=== PATIENT | female | born 1960 | race Two or more races ===

== ENCOUNTER 2018-08-15 07:27 | Observation (INO) | payer OTHER ==
[2018-08-15 07:44] VITALS: BMI 22.2
--- NOTE | 2018-08-15 07:46 | PDOC ---
History of Present Illness <Natasha Coronel - Last Filed: 08/15/18 09:56> - General History Source: Patient Exam Limitations: No Limitations - History of Present Illness Initial Comments: 08/15/18 08:29 58-year-old female with no significant previous medical history presents to the ER with 12-14 hours of left sided paresthesias. Patient endorses that paresthesias involve her face, scalp, left upper and lower extremities. The paresthesias have increased in severity since the onset. Patient reports sensation of movement within her scalp and complains of mild left-sided pressure. Patient also reports left sided tinnitus. Patient denies changes in visual acuity but does report intermittent dizziness which she describes as a temporary loss of balance. Patient denies fevers/nausea/vomiting. There is no previous history of similar complaints. REVIEW OF SYSTEMS CONSTITUTIONAL: No fever, no chills, no fatigue EYES: No visual changes ENT: No ear pain, no sore throat CARDIOVASCULAR: No chest pain, no palpitations RESPIRATORY: No cough, no SOB GI: No abdominal pain, no nausea, no vomiting, no constipation, no diarrhea GENITOURINARY: No dysuria, no frequency, no hematuria MUSKULOSKELETAL: No backpain, no joint pain, no myalgias SKIN: No rash NEURO: + left sided headache EXAMINATION CONSTITUTIONAL: Well-appearing; well-nourished; in no apparent distress HEAD: Normocephalic; atraumatic EYES: PERRL; EOM intact ENMT: External appears normal; normal oropharynx NECK: Supple; non-tender; no cervical lymphadenopathy CARD: Normal S1, S2; no murmurs, rubs, or gallops RESP: Normal chest excursion with respiration; breath sounds clear and equal bilaterally; no wheezes, rhonchi, or rales ABD: Soft, non-distended; non-tender; no palpable organomegaly, no palpable hernias EXT: Normal ROM in all four extremities; non-tender to palpation; distal pulses intact SKIN: Warm, dry, no rash NEURO: Cranial nerves II through XII grossly intact; motor is 5 of 54; there is no pronation drift; gait is stable; there is decreased fine touch to left V1/ V2. <Gildardo Peñaloza - Last Filed: 08/15/18 11:37> - General Chief Complaint: CVA/TIA Stated Complaint: L SIDED NUMBNESS Time Seen by Provider: 08/15/18 07:46 Past History <Natasha Coronel - Last Filed: 08/15/18 09:56> - Past Medical History COPD: No Other medical history: denies - Surgical History Appendectomy: Yes - Immunization History Immunization Up to Date: Yes - Suicide/Smoking/Psychosocial Hx Smoking History: Never smoked Hx Alcohol Use: No Drug/Substance Use Hx: No <Gildardo Peñaloza - Last Filed: 08/15/18 11:37> - Past Medical History Allergies/Adverse Reactions: Allergies Allergy/AdvReac Type Severity Reaction Status Date / Time No Known Allergies Allergy Verified 08/15/18 07:33 Home Medications: Ambulatory Orders NK [No Known Home Medication] 08/15/18 *Physical Exam - Vital Signs Last Vital Signs Temp Pulse Resp BP Pulse Ox 98.4 F 106 H 18 163/55 L 100 08/15/18 07:33 08/15/18 07:33 08/15/18 07:33 08/15/18 07:33 08/15/18 07:33 <Natasha Coronel - Last Filed: 08/15/18 09:56> - Vital Signs Last Vital Signs Temp Pulse Resp BP Pulse Ox 98.4 F 106 H 18 163/55 L 100 08/15/18 07:33 08/15/18 07:33 08/15/18 07:33 08/15/18 07:33 08/15/18 07:33 <Gildardo Peñaloza - Last Filed: 08/15/18 11:37> Moderate Sedation - Procedure Monitoring Vital Signs: Procedure Monitoring Vital Signs Temperature 98.4 F 08/15/18 07:33 Pulse Rate 106 H 08/15/18 07:33 Respiratory Rate 18 08/15/18 07:33 Blood Pressure 163/55 L 08/15/18 07:33 O2 Sat by Pulse Oximetry (%) 100 08/15/18 07:33 <Natasha Coronel - Last Filed: 08/15/18 09:56> - Procedure Monitoring Vital Signs: Procedure Monitoring Vital Signs Temperature 98.4 F 08/15/18 07:33 Pulse Rate 106 H 08/15/18 07:33 Respiratory Rate 18 08/15/18 07:33 Blood Pressure 163/55 L 08/15/18 07:33 O2 Sat by Pulse Oximetry (%) 100 08/15/18 07:33 <Gildardo Peñaloza - Last Filed: 08/15/18 11:37> Critical Care Time/MDM Note - Medical Decision Making Note: 08/15/18 09:51 Dr. Lares was called at the office and the patient's case was discussed 08/15/18 09:56 Dr. Barreto was paged at the office at this time requesting a call back for doctor to doctor consult, awaiting call back at this time. <Natasha Coronel - Last Filed: 08/15/18 09:56> - Medical Decision Making Note: 08/15/18 11:17 58-year-old female with no significant past medical history presents with left- sided facial, arm and leg paresthesias and intermittent tinnitus. Differential diagnoses includes TIA versus CVA versus demyelinating disease. MS is less likely. Case discussed with Dr. Zora Bates of neurology. He recommends aspirin and MRI of brain to rule out CVA. Will place on stroke/obs further evaluation. <Gildardo Peñaloza - Last Filed: 08/15/18 11:37> *DC/Admit/Observation/Transfer - Attestations Scribe Attestion: 08/15/18 09:52 Documentation prepared by Natasha Coronel, acting as medical lab assistant for Gildardo Peñaloza MD <Natasha Coronel - Last Filed: 08/15/18 09:56> - Discharge Dispostion Decision to Admit order: Yes <Gildardo Peñaloza - Last Filed: 08/15/18 11:37> Diagnosis at time of Disposition: TIA (transient ischemic attack) - Discharge Dispostion Condition at time of disposition: Fair - Referrals Referrals: Jonah Lares MD [Primary Care Provider] - - Patient Instructions - Post Discharge Activity
[2018-08-15] MEDS ORDERED: SODIUM CHLORIDE 1,000 ML IV SCH ×2 (08:00→11:45)
[2018-08-15 08:41] LABS: BASO % 0.5 % (0-2.0); EOS % 0.8 % (0-4.5); HEMATOCRIT 39.2 % (32.4-45.2); HEMOGLOBIN 13.1 GM/dL (10.7-15.3); LYMPH % 27.7 % (8-40); MCH 29.1 pg (25.7-33.7); MCHC 33.4 g/dl (32.0-36.0); MEAN CELL VOLUME 87.2 fl (80-96); MEAN PLT VOLUME 9.8 fl (7.5-11.1); MONO % 6.2 % (3.8-10.2); NEUT % 64.8 % (42.8-82.8); PLATELET COUNT 248 K/MM3 (134-434); RBC 4.49 M/mm3 (3.60-5.2); RDW 12.9 % (11.6-15.6); WHITE BLOOD COUNT 5.5 K/mm3 (4.0-10.0)
[2018-08-15 09:02] LABS: INR 1.03 (0.83-1.09); PROTHROMBIN TIME (PATIENT) 12.2 SEC (9.7-13.0)
[2018-08-15 09:19] LABS: URINE APPEARANCE SLCLOUDY; URINE BILIRUBIN NEGATIVE (<2.0 mg/dL); URINE COLOR YELLOW; URINE GLUCOSE (UA) NEGATIVE (NEGATIVE); URINE KETONE NEGATIVE (NEGATIVE); URINE LEUK ESTERASE NEGATIVE (NEGATIVE); URINE NITRITE NEGATIVE (NEGATIVE); URINE PROTEIN NEGATIVE (NEGATIVE); URINE UROBILINOGEN NEGATIVE mg/dL (0.2-1.0)
[2018-08-15 09:22] LABS: EPI CELLS RARE /HPF (FEW); URINE MUCUS RARE
[2018-08-15 09:25] LABS: ALBUMIN 4.1 g/dl (3.4-5.0); ALK PHOS 90 U/L (45-117); ANION GAP 5 MMOL/L (8-16); BILIRUBIN,TOTAL 0.2 mg/dL (0.2-1); BLOOD UREA NITROGEN 17 mg/dL (7-18); CALCIUM 9.6 mg/dL (8.5-10.1); CHLORIDE 105 mmol/L (98-107); CHOLESTEROL 215 mg/dL (50-200); CO2 30 mmol/L (21-32); CREATININE 0.7 mg/dL (0.55-1.3); GLUCOSE,RANDOM 164 mg/dL (74-106); HDL CHOLESTEROL 67 mg/dL (40-60); POTASSIUM 4.1 mmol/L (3.5-5.1); SGOT/AST 26 U/L (15-37); SGPT/ALT 25 U/L (13-61); SODIUM 140 mmol/L (136-145); TOT PROT 7.7 g/dl (6.4-8.2); TRIGLYCERIDES 79 mg/dL (0-150)
--- NOTE | 2018-08-15 11:09 | EKG ---
Test Reason : Blood Pressure : / mmHG Vent. Rate : 093 BPM Atrial Rate : 093 BPM P-R Int : 150 ms QRS Dur : 074 ms QT Int : 352 ms P-R-T Axes : 067 -25 048 degrees QTc Int : 437 ms NORMAL SINUS RHYTHM POSSIBLE LEFT ATRIAL ENLARGEMENT NONSPECIFIC ST ABNORMALITY ABNORMAL ECG WHEN COMPARED WITH ECG OF 01-APR-2014 08:42, NO SIGNIFICANT CHANGE WAS FOUND Confirmed by PORTILLO URRUTIA, JESSICA ([id number]) on 08/15/2018 11:08:56 AM Referred By: Confirmed By:JESSICA NATH MD
--- NOTE | 2018-08-15 13:00 | HP ---
CHIEF COMPLAINT: Left sided tingling/numbness PCP: Dr. Brand HISTORY OF PRESENT ILLNESS: 58 yof with no significant PMHx, [employer]orationism, was in her [facility]OH till yesterday noon when had sudden onset of left sided head 'pressure' lasting all day and today. This AM woke with numbness/tingling sensation left side of face, left forearm dorsal area and left posterior calf region prompting her to come to the ED. Denies any slurring of speech, weakness, vision disturbance, LOC, chest pain, dyspnea, palpitations, nausea, vomiting or other concerns. 12 point ROS done, neg except above Currently her symptoms are unchanged since admission. Cleared bedside swallow eval with ED RN. ER course was notable for: (1) CT head neg for acute process (2) Neurology consult Recent Travel: denies PAST MEDICAL HISTORY: denies PAST SURGICAL HISTORY: denies Social History: Smoking: never Alcohol: occasional glass of wine Drugs: denies Works with [employer], stressful job independent in ADLs, lives with family Family History: DM in mother, grand mother with stroke in early 60s Allergies No Known Allergies Allergy (Verified 08/15/18 07:33) HOME MEDICATIONS: Home Medications Medication Instructions Recorded NK [No Known Home Medication] 08/15/18 REVIEW OF SYSTEMS CONSTITUTIONAL: Absent: fever, chills, diaphoresis, generalized weakness, malaise, loss of appetite, weight change HEENT: Absent: rhinorrhea, nasal congestion, throat pain, throat swelling, difficulty swallowing, mouth swelling, ear pain, eye pain, visual changes CARDIOVASCULAR: Absent: chest pain, syncope, palpitations, irregular heart rate, lightheadedness , peripheral edema RESPIRATORY: Absent: cough, shortness of breath, dyspnea with exertion, orthopnea, wheezing, stridor, hemoptysis GASTROINTESTINAL: Absent: abdominal pain, abdominal distension, nausea, vomiting, diarrhea, constipation, melena, hematochezia GENITOURINARY: Absent: dysuria, frequency, urgency, hesitancy, hematuria, flank pain, genital pain MUSCULOSKELETAL: Absent: myalgia, arthralgia, joint swelling, back pain, neck pain SKIN: Absent: rash, itching, pallor HEMATOLOGIC/IMMUNOLOGIC: Absent: easy bleeding, easy bruising, lymphadenopathy, frequent infections ENDOCRINE: Absent: unexplained weight gain, unexplained weight loss, heat intolerance, cold intolerance NEUROLOGIC: present: left sided head pressures, paresthesias left sided per HPI Absent: focal weakness dizziness, unsteady gait, seizure, mental status changes , bladder or bowel incontinence PSYCHIATRIC: Absent: anxiety, depression, suicidal or homicidal ideation, hallucinations. PHYSICAL EXAMINATION Vital Signs - 24 hr 08/15/18 07:33 Temperature 98.4 F Pulse Rate 106 H Respiratory 18 Rate Blood Pressure 163/55 L O2 Sat by Pulse 100 Oximetry (%) GENERAL: Awake, alert, and fully oriented, in no acute distress. HEAD: Normal with no signs of trauma. EYES: Pupils equal, round and reactive to light, extraocular movements intact, sclera anicteric, conjunctiva clear. No lid lag. EARS, NOSE, THROAT: Ears normal, nares patent, oropharynx clear without exudates. Moist mucous membranes. NECK: Normal range of motion, supple without lymphadenopathy, JVD, or masses. No carotid bruit appreciated LUNGS: Breath sounds equal, clear to auscultation bilaterally. No wheezes, and no crackles. No accessory muscle use. HEART: Regular rate and rhythm, normal S1 and S2 ABDOMEN: Soft, nontender, not distended, normoactive bowel sounds, no guarding, no rebound, no masses. No hepatomegaly or splenomegaly appreciated. MUSCULOSKELETAL: Normal range of motion at all joints. No bony deformities or tenderness. No CVA tenderness. UPPER EXTREMITIES: 2+ pulses, warm, well-perfused. No cyanosis. No clubbing. No peripheral edema. LOWER EXTREMITIES: 2+ pulses, warm, well-perfused. No calf tenderness. No peripheral edema. NEUROLOGICAL: AAOx3, facial symmetry, tongue midline, power 5/5, no pronator drift, toes downgoing, DTR bilaterally symmetric, reports tingling on palpation of left face/left dorsal forearm and posterior calf region with no reported numbness or decreased sensation, Cranial nerves II-XII intact. Normal speech. Normal gait. PSYCHIATRIC: Cooperative. Good eye contact. Appropriate mood and affect. SKIN: Warm, dry, normal turgor, no rashes or lesions noted, normal capillary refill. Laboratory Results - last 24 hr 08/15/18 08/15/18 08/15/18 08:10 08:10 08:10 WBC 5.5 RBC 4.49 Hgb 13.1 Hct 39.2 MCV 87.2 MCH 29.1 MCHC 33.4 RDW 12.9 Plt Count 248 MPV 9.8 Absolute Neuts (auto) 3.6 Neutrophils % 64.8 Lymphocytes % 27.7 Monocytes % 6.2 Eosinophils % 0.8 Basophils % 0.5 Nucleated RBC % 0 PT with INR 12.20 INR 1.03 Sodium Potassium Chloride Carbon Dioxide Anion Gap BUN Creatinine Creat Clearance w eGFR Random Glucose Calcium Total Bilirubin AST ALT Alkaline Phosphatase Creatine Kinase Troponin I Total Protein Albumin Triglycerides Cholesterol Total LDL Cholesterol HDL Cholesterol Vitamin B12 TSH Urine Color Yellow Urine Appearance Slcloudy Urine pH 6.0 Ur Specific [place] 1.013 Urine Protein Negative Urine Glucose (UA) Negative Urine Ketones Negative Urine Blood 1+ H Urine Nitrite Negative Urine Bilirubin Negative Urine Urobilinogen Negative Ur Leukocyte Esterase Negative Urine WBC (Auto) 2 Urine RBC (Auto) 10 Ur Epithelial Cells Rare Urine Mucus Rare 08/15/18 08:10 WBC RBC Hgb Hct MCV MCH MCHC RDW Plt Count MPV Absolute Neuts (auto) Neutrophils % Lymphocytes % Monocytes % Eosinophils % Basophils % Nucleated RBC % PT with INR INR Sodium 140 Potassium 4.1 Chloride 105 Carbon Dioxide 30 Anion Gap 5 L BUN 17 Creatinine 0.7 Creat Clearance w eGFR > 60 Random Glucose 164 H Calcium 9.6 Total Bilirubin 0.2 AST 26 ALT 25 Alkaline Phosphatase 90 Creatine Kinase 133 Troponin I < 0.02 Total Protein 7.7 Albumin 4.1 Triglycerides 79 Cholesterol 215 H Total LDL Cholesterol 115 H HDL Cholesterol 67 H Vitamin B12 997 H TSH 5.12 H Urine Color Urine Appearance Urine pH Ur Specific [place] Urine Protein Urine Glucose (UA) Urine Ketones Urine Blood Urine Nitrite Urine Bilirubin Urine Urobilinogen Ur Leukocyte Esterase Urine WBC (Auto) Urine RBC (Auto) Ur Epithelial Cells Urine Mucus CT brain results reviewed EKG NSR, no acute ST-T changes ASSESSMENT/PLAN: 58 yof with no significant PMHx here with left side paresthesias. -left sided paresthesias, r/o TIA/CVA -Dyslipidemia -Elevated TSH Plan: Admit to stroke telemetry Neuro checks, MRI brain, Carotid duplex, 2D echo. Neurology consulted from ED, follow up recs. Permissive HTN x 24 hours. High dose statin for now Follow up full thyroid panel. Cleared bedside swallow eval, no speech or swallow concerns. PO as tolerated for now PT eval [id number] SCDs in bed Dispo d/c in 24 hours if no new clinical concerns pending workup as above Plan discussed with patient and daughter at bedside in detail, all questions answered total admit time 55 min. Visit type - Emergency Visit Emergency Visit: Yes ED Registration Date: 08/15/18 Care time: The patient presented to the Emergency Department on the above date and was hospitalized for further evaluation of their emergent condition. - New Patient This patient is new to me today: Yes Date on this admission: 08/15/18 - Critical Care Critical Care patient: No
[2018-08-15] MEDS ORDERED: ATORVASTATIN CA 80 MG TABLET (FP) PO SCH (22:00)
[2018-08-16 05:36] VITALS: PULSE 84
--- NOTE | 2018-08-16 09:17 | CONSULT ---
Consult - text type - Consultation Consultation Note: Neurology CHIEF COMPLAINT: Left sided tingling/numbness PCP: Dr. Brand HISTORY OF PRESENT ILLNESS: 58 yof with no significant PMHx, Orthodoxy, was in her [facility] untill day prior to admission when she had sudden onset of left sided head 'pressure' lasting all day and into the day of admission. Day of admission, she woke up with numbness/tingling sensation left side of face, left forearm dorsal area and left posterior calf region prompting her to come to the ED. She denied any slurring of speech, weakness, vision disturbance, LOC, chest pain, dyspnea, palpitations, nausea, vomiting or other concerns. Cleared bedside swallow eval with ED RN. CT head reviewd and without acute changes. Contacted by ER and agreed with obs/admission for CVA workup. MRI brain ordered and completed, reviewed images. Awaiting official report. Carotid doppler completed and reviewed, no hemodynamically signficant stenosis. Echo being completed at bedside this AM. Patient reports being at baseline without complaints or deficits. Recent Travel: denies PAST MEDICAL HISTORY: denies PAST SURGICAL HISTORY: denies Social History: Smoking: never Alcohol: occasional glass of wine Drugs: denies Works with [employer], stressful job independent in ADLs, lives with family Family History: DM in mother, grand mother with stroke in early 60s Allergies No Known Allergies Allergy (Verified 08/15/18 07:33) HOME MEDICATIONS: Home Medications Medication Instructions Recorded NK [No Known Home Medication] 08/15/18 REVIEW OF SYSTEMS CONSTITUTIONAL: Absent: fever, chills, diaphoresis, generalized weakness, malaise, loss of appetite, weight change HEENT: Absent: rhinorrhea, nasal congestion, throat pain, throat swelling, difficulty swallowing, mouth swelling, ear pain, eye pain, visual changes CARDIOVASCULAR: Absent: chest pain, syncope, palpitations, irregular heart rate, lightheadedness , peripheral edema RESPIRATORY: Absent: cough, shortness of breath, dyspnea with exertion, orthopnea, wheezing, stridor, hemoptysis GASTROINTESTINAL: Absent: abdominal pain, abdominal distension, nausea, vomiting, diarrhea, constipation, melena, hematochezia GENITOURINARY: Absent: dysuria, frequency, urgency, hesitancy, hematuria, flank pain, genital pain MUSCULOSKELETAL: Absent: myalgia, arthralgia, joint swelling, back pain, neck pain SKIN: Absent: rash, itching, pallor HEMATOLOGIC/IMMUNOLOGIC: Absent: easy bleeding, easy bruising, lymphadenopathy, frequent infections ENDOCRINE: Absent: unexplained weight gain, unexplained weight loss, heat intolerance, cold intolerance NEUROLOGIC: present: left sided head pressures, paresthesias left sided per HPI Absent: focal weakness dizziness, unsteady gait, seizure, mental status changes , bladder or bowel incontinence PSYCHIATRIC: Absent: anxiety, depression, suicidal or homicidal ideation, hallucinations. PHYSICAL EXAMINATION Vital Signs Period Temp Pulse Resp BP Sys/Mehta Pulse Ox Last 24 Hr 97.3 F-99.3 F 81-84 18-20 124-154/66-74 97 GENERAL: Awake, alert, and fully oriented, in no acute distress. HEAD: Normal with no signs of trauma. EYES: Pupils equal, round and reactive to light, extraocular movements intact, sclera anicteric, conjunctiva clear. No lid lag. EARS, NOSE, THROAT: Ears normal, nares patent, oropharynx clear without exudates. Moist mucous membranes. NECK: Normal range of motion, supple without lymphadenopathy, JVD, or masses. No carotid bruit appreciated LUNGS: Breath sounds equal, clear to auscultation bilaterally. No wheezes, and no crackles. No accessory muscle use. HEART: Regular rate and rhythm, normal S1 and S2 ABDOMEN: Soft, nontender, not distended, normoactive bowel sounds, no guarding, no rebound, no masses. No hepatomegaly or splenomegaly appreciated. MUSCULOSKELETAL: Normal range of motion at all joints. No bony deformities or tenderness. No CVA tenderness. UPPER EXTREMITIES: 2+ pulses, warm, well-perfused. No cyanosis. No clubbing. No peripheral edema. LOWER EXTREMITIES: 2+ pulses, warm, well-perfused. No calf tenderness. No peripheral edema. NEUROLOGICAL: AAOx3, facial symmetry, tongue midline, power 5/5, no pronator drift, toes downgoing, DTR bilaterally symmetric, reports tingling on palpation of left face/left dorsal forearm and posterior calf region with no reported numbness or decreased sensation, Cranial nerves II-XII intact. Normal speech. Normal gait. PSYCHIATRIC: Cooperative. Good eye contact. Appropriate mood and affect. SKIN: Warm, dry, normal turgor, no rashes or lesions noted, normal capillary refill. Laboratory Results - last 24 hr 08/15/18 08/15/18 08/15/18 08:10 08:10 08:10 WBC 5.5 RBC 4.49 Hgb 13.1 Hct 39.2 MCV 87.2 MCH 29.1 MCHC 33.4 RDW 12.9 Plt Count 248 MPV 9.8 Absolute Neuts (auto) 3.6 Neutrophils % 64.8 Lymphocytes % 27.7 Monocytes % 6.2 Eosinophils % 0.8 Basophils % 0.5 Nucleated RBC % 0 PT with INR 12.20 INR 1.03 Sodium Potassium Chloride Carbon Dioxide Anion Gap BUN Creatinine Creat Clearance w eGFR Random Glucose Calcium Total Bilirubin AST ALT Alkaline Phosphatase Creatine Kinase Troponin I Total Protein Albumin Triglycerides Cholesterol Total LDL Cholesterol HDL Cholesterol Vitamin B12 TSH Urine Color Yellow Urine Appearance Slcloudy Urine pH 6.0 Ur Specific [place] 1.013 Urine Protein Negative Urine Glucose (UA) Negative Urine Ketones Negative Urine Blood 1+ H Urine Nitrite Negative Urine Bilirubin Negative Urine Urobilinogen Negative Ur Leukocyte Esterase Negative Urine WBC (Auto) 2 Urine RBC (Auto) 10 Ur Epithelial Cells Rare Urine Mucus Rare 08/15/18 08:10 WBC RBC Hgb Hct MCV MCH MCHC RDW Plt Count MPV Absolute Neuts (auto) Neutrophils % Lymphocytes % Monocytes % Eosinophils % Basophils % Nucleated RBC % PT with INR INR Sodium 140 Potassium 4.1 Chloride 105 Carbon Dioxide 30 Anion Gap 5 L BUN 17 Creatinine 0.7 Creat Clearance w eGFR > 60 Random Glucose 164 H Calcium 9.6 Total Bilirubin 0.2 AST 26 ALT 25 Alkaline Phosphatase 90 Creatine Kinase 133 Troponin I < 0.02 Total Protein 7.7 Albumin 4.1 Triglycerides 79 Cholesterol 215 H Total LDL Cholesterol 115 H HDL Cholesterol 67 H Vitamin B12 997 H TSH 5.12 H Urine Color Urine Appearance Urine pH Ur Specific [place] Urine Protein Urine Glucose (UA) Urine Ketones Urine Blood Urine Nitrite Urine Bilirubin Urine Urobilinogen Ur Leukocyte Esterase Urine WBC (Auto) Urine RBC (Auto) Ur Epithelial Cells Urine Mucus CT brain results reviewed EKG NSR, no acute ST-T changes ASSESSMENT/PLAN: 58 yof with no significant PMHx, Orthodoxy, was in her [facility] untill day prior to admission when she had sudden onset of left sided head 'pressure' lasting all day and into the day of admission. Day of admission, she woke up with numbness/tingling sensation left side of face, left forearm dorsal area and left posterior calf region prompting her to come to the ED. She denied any slurring of speech, weakness, vision disturbance, LOC, chest pain, dyspnea, palpitations, nausea, vomiting or other concerns. Cleared bedside swallow eval with ED RN. CT head reviewd and without acute changes. Contacted by ER and agreed with obs/admission for CVA workup. MRI brain ordered and completed, reviewed images. Awaiting official report. Carotid doppler completed and reviewed, no hemodynamically signficant stenosis. Echo being completed at bedside this AM. Patient reports being at baseline without complaints or deficits. Continue tele monitoring for now. Follow up official reports on MRI and Echo. Neurologically stable, if negative MRI, would not require ASA at this point given lack of risk factors (no HTN, no HLD history). SCDs ordered for DVT prevention. Neurologically at baseline, if negative work up, advised patient for outpatient followup.
[2018-08-16] MEDS ORDERED: ASPIRIN COATED 81 MG TABLET.EC PO SCH (10:00)
[2018-08-16 10:38] VITALS: BP 119/66; TEMP 98.2
--- NOTE | 2018-08-16 11:35 | ECHO ---
Name: KHURRAM BETH Exam:Adult Echocardiogram Study Date: 08/16/2018 08:33 AM Age: 58 yrs Reason For Study: tia vs cva Height: 59 in Weight: 110 lb BSA: 1.4 m2 MMode/2D Measurements & Calculations IVSd: 0.76 cm Ao root diam: 2.3 cm LVIDd: 3.1 cm LA dimension: 2.2 cm LVIDs: 2.0 cm LVPWd: 0.77 cm LVPWs: 1.5 cm EDV(Teich): 38.0 ml ESV(Teich): 13.5 ml LVOT diam: 1.9 cm RV S Pablo: 14.4 cm/sec Doppler Measurements & Calculations MV E max pablo: 79.1 cm/sec Ao V2 max: 127.4 cm/sec MV A max pablo: 75.7 cm/sec Ao max P.5 mmHg MV E/A: 1.0 Ao V2 mean: 78.6 cm/sec MV dec time: 0.18 sec Ao mean P.0 mmHg Ao V2 VTI: 22.8 cm HERON(I,D): 2.7 cm2 HERON(V,D): 2.5 cm2 LV V1 max P.1 mmHg SV(LVOT): 62.6 ml LV V1 mean P.4 mmHg LV V1 max: 112.5 cm/sec LV V1 mean: 71.8 cm/sec LV V1 VTI: 22.2 cm TR max pablo: 211.7 cm/sec PA V2 max: 113.9 cm/sec TR max P.9 mmHg PA max P.2 mmHg Med Peak E' Pablo: 7.7 cm/sec Med E/e': 10.2 Lat Peak E' Pablo: 9.6 cm/sec Lat E/e': 8.3 Procedure A complete two-dimensional transthoracic echocardiogram was performed (2D, M-mode, Doppler and color flow Doppler). Left Ventricle The left ventricular size, thickness and function are normal. The left ventricular ejection fraction is normal. Ejection Fraction = 60-65%. The left ventricular wall motion is normal. Right Ventricle The right ventricle is normal in size and function. Atria Normal left and right atrial size and function. Mitral Valve There is trace mitral regurgitation. Tricuspid Valve No tricuspid regurgitation. There was insufficient TR detected to calculate RV systolic pressure. Aortic Valve No hemodynamically significant valvular aortic stenosis. No aortic regurgitation is present. Pulmonic Valve There is no pulmonic valvular regurgitation. Great Vessels The aortic root is normal size. Pericardium/Pleura There is no pericardial effusion. Interpretation Summary The left ventricular size, thickness and function are normal The right ventricle is normal in size and function. There is trace mitral regurgitation. MD Saul Nova 08/16/2018 11:34 AM
--- NOTE | 2018-08-16 13:56 | DS ---
Physical Exam: SUBJECTIVE: Patient seen and examined, no further tingling, numbness or new concerns. Feels well. OBJECTIVE: Vital Signs Period Temp Pulse Resp BP Sys/Mehta Pulse Ox Last 24 Hr 97.3 F-99.3 F 81-84 18-22 119-154/66-74 97-98 PHYSICAL EXAM GENERAL: The patient is awake, alert, and fully oriented, in no acute distress. HEAD: Normal with no signs of trauma. EYES: PERRL, extraocular movements intact, sclera anicteric, conjunctiva clear. ENT: Ears normal, nares patent, oropharynx clear without exudates, moist mucous membranes. NECK: Trachea midline, full range of motion, supple. LUNGS: Breath sounds equal, clear to auscultation bilaterally, no wheezes, no crackles, no accessory muscle use. HEART: Regular rate and rhythm, S1, S2 without murmur, rub or gallop. ABDOMEN: Soft, nontender, nondistended, normoactive bowel sounds, no guarding, no rebound, no hepatosplenomegaly, no masses. EXTREMITIES: 2+ pulses, warm, well-perfused, no edema. NEUROLOGICAL: AAOx3, power 5/5, sensation intact and symmetric bilaterally, no tingling or numbness noted, Cranial nerves II through XII grossly intact. Normal speech, gait normal, DTR bilaterally symmetric, toes down going PSYCH: Normal mood, normal affect. SKIN: Warm, dry, normal turgor, no rashes or lesions noted. LABS Laboratory Results - last 24 hr 08/15/18 12:[address]3 [address] brain - CT scan of the brain without intravenous contrast. There is mild volume loss which is nonspecific. The ventricles and basal cisterns appear unremarkable. No mass lesion, gross acute infarct or intracranial hemorrhage are identified. Visualized paranasal sinuses and mastoid air cells are well- aerated. The calvarium is intact. Impression: No evidence of a focal intracranial lesion or hemorrhage seen. Correlate clinically to determine further evaluation and follow-up. Carotid Duplex - Bilateral carotid Doppler ultrasound Grayscale, pulsed Doppler and color Doppler interrogation of both carotid and both vertebral arteries was performed. The right common carotid, internal and external external carotid artery were identified with a peak systolic velocity of 85, 75 and 90 cm/sec, respectively. The left common carotid, internal and external carotid artery were identified with a peak systolic velocity of 130, 95 and 85 cm/sec, respectively. Flow in the physiologic direction was documented in both vertebral arteries. Impression: Mild intimal thickening and tiny plaques at the common carotid bifurcation, bilaterally without evidence of hemodynamically significant stenosis, bilaterally. MRI brain - MRI of the brain without intravenous contrast A noncontrast MRI of the brain was performed with multiplanar T1 and T2-weighted images obtained. Compared to prior CT scan of the head dated 08/15/2018 at 08:45 hour. There is mild volume loss and minimal periventricular chronic microvascular ischemic disease changes. The ventricles and basal cisterns appear unremarkable. No mass lesion, acute infarct or intracranial hemorrhage are identified. There is no shift of the midline structures Flow voids are present within the central intracranial arterial circulation. Minimal deviation of the nasal septum towards the right. The right maxillary antrum is totally opacified. Both orbits appear unremarkable. No suspicious bone marrow abnormal signal is identified IMPRESSION: Mild volume loss and minimal chronic microvascular ischemic disease changes without evidence of acute intracranial pathology. Totally opacified right maxillary antrum compatible with chronic sinusitis. Mild deviation of the nasal septum to the right and minimal mucosal thickening in the ethmoid air cells 2D echo - Normal LV and RV function, trace mitral regurgitation HOSPITAL COURSE: Date of Admission:08/15/18 Date of Discharge: 08/16/18 Minutes to complete discharge: 35 Discharge Summary Reason For Visit: TIA Current Active Problems TIA (transient ischemic attack) (Acute) Hospital Course: 58 yof with no significant PMHx, Christianity, admitted with left sided tingling/numbness since woke up on the day of admission. She had CT brain in the ED that was negative for acute process. Her symptoms resolved over 24 hours. She had MRI brain that was negative for acute stroke but showed mild volume loss and microvascular ischemic changes. She had carotid duplex with no concerning stenosis and non concerning 2D echo. She was evaluated by neurology. She had abnormal lipid panel, was hesitant to being started on statins and is advised diet/exercise and follow up with PCP to discuss further treatment options. She had an elevated TSH with normal Free T4 and total T3 and advised thyroid function test in 2-3 weeks with her PCP. She is currently asymptomatic and will be discharged in stable condition. Plan has been discussed with patient and her daughter in detail. Condition: Stable - Instructions Diet, Activity, Other Instructions: Low fat diet and exercise and follow up with your doctor to discuss cholesterol medication. Your thyroid test TSH was noted elevated with normal T4 and T3. You are advised to have repeat thyroid function test with your doctor in 2-3 weeks to discuss further management. You had MRI brain that was negative for acute stroke. You also had 2D echo, carotid duplex that did not show any concerning findings FOLLOW UP: Primary care physician in [address] Barreto in 2-3 weeks Thyroid function tests in 2-3 weeks If you notice any new tingling, numbness, weakness or new concerns, please call 911 or come to ED. Referrals: Jonah Lares MD [Primary Care Provider] - 1 Week Elvis Barreto MD [Staff Physician] - 3 Weeks Disposition: HOME - Home Medications Comprehensive Discharge Medication List: Ambulatory Orders NK [No Known Home Medication] 08/15/18 This patient is new to me today: No Emergency Visit: Yes ED Registration Date: 08/15/18 Care time: The patient presented to the Emergency Department on the above date and was hospitalized for further evaluation of their emergent condition. Critical Care patient: No - Discharge Referral Referred to [facility] Med P.C.: No
== END 2018-08-16 14:27 | disposition home or self-care (01) ==
LOC: JER 07:27 → JERBED 11:37 → J4W 15:31
PROVIDERS: ADMIT Hospitalist; ATTEND Hospitalist
PROC: 3E0337Z Introduction of Electrolytic and Water Balance Substance into Peripheral Vein, Percutaneous Approach (ICD-10-PCS; principal; 2018-08-15)
DX: G45.9 Transient cerebral ischemic attack, unspecified (principal); R20.2 Paresthesia of skin; E78.5 Hyperlipidemia, unspecified; R94.6 Abnormal results of thyroid function studies
CPT/HCPCS: 36415; 70450-TC; 70551-TC; 80053; 81003; 81015; 82465; 82550; 82607; 83718; 83721; 84439; 84443; 84478; 84481; 84484; 85025; 85610; 86850; 86900; 86901; 93005; 93010; 93306-TC; 93880-TC; 97116-GP; 97161-GP; 99285-25; G0378; J7030